=== PATIENT | female | born 1950 | race Two or more races ===

== ENCOUNTER 2016-11-18 13:04 | Emergency (ER) | payer MEDICAID, OTHER ==
[~2016-11-18] VITALS: Ht 162.6 cm; Wt 61.2 kg
[2016-11-18] MEDS ORDERED: NORCO 5-325 TA1 EAC1 ORAL (14:03)
[2016-11-18] MEDS ORDERED: IBUPROFEN600 MG ORAL (14:03)
[2016-11-18 14:11] VITALS: BP 133/80
[2016-11-18 14:12] VITALS: BP 133/80
--- NOTE | 2016-11-18 15:42 | Emergency Room Report ---
History of Present Illness General Chief Complaint: Lower Back Pain or Injury Source: Patient Present Illness [facility] The patient is a 66-year-old female presenting with right lower back pain which began 2 days prior for no known reason. She denies any injury. She denies previous injury to the area. Pain is described as a 7/10 dull ache and radiates from the right lower back to the buttock. She denies any numbness or tingling. Worse with walking. She denies any other symptoms including nausea, vomiting, fever, chills, abdominal pain, dysuria, vaginal discharge Allergies: Coded Allergies: No Known Allergies (Unverified , 11/18/16) Patient History Past Medical History: see triage record Pertinent Family History: none Reviewed Nursing Documentation: PMH: Agreed, PSxH: Agreed Nursing Documentation-PMH Past Medical History: No History, Except For Hx Cardiac Problems: No Hx Hypertension: No Hx Pacemaker: No Hx Asthma: No Hx COPD: No Hx Diabetes: No Hx Seizures: No Review of Systems All Other Systems: negative except mentioned in HPI Physical Exam Vital Signs Date Time Temp Pulse Resp B/P Pulse Ox O2 Delivery O2 Flow Rate FiO2 11/18/16 13:26 97.9 73 14 133/80 99 Room Air Sp02 EP Interpretation: reviewed, normal General Appearance: no apparent distress, alert, GCS 15, non-toxic Head: normocephalic, atraumatic Eyes: bilateral eye PERRL, bilateral eye normal inspection ENT: hearing grossly normal, normal pharynx, no angioedema, normal voice Gastrointestinal: normal bowel sounds, non tender, soft, non-distended, no guarding, no rebound Genitourinary: normal inspection, no CVA tenderness Musculoskeletal: back normal, gait/station normal, normal range of motion, non- tender, tender - TTP over the R lumbar paraspinal muscles Neurologic: alert, oriented x3, responsive, motor strength/tone normal, sensory intact, speech normal Psychiatric: judgement/insight normal, memory normal, mood/affect normal, no suicidal/homicidal ideation Skin: normal color, no rash, warm/dry, well hydrated Lymphatic: no adenopathy Medical Decision Making PA Attestation Dr. Herndon is my supervising physician. Patient management was discussed with my supervising physician Diagnostic Impression: Primary Impression: Lumbosacral pain ER Course The patient is a 66-year-old female presenting with right lower back pain Ddx considered include but not limited to lumbar strain, degenerative disease, epidural abscess, cauda equina, chronic pain, narcotic dependency. PE: vitals WNL. NAD TTP over the R lumbar paraspinal muscles and buttock. Normal gait. No CVA tenderness or abd tenderness Otherwise unremarkable. No midline tenderness The patient will be treated with pain medication and needs to FU with PMD. ER precautions given Last Vital Signs Date Time Temp Pulse Resp B/P Pulse Ox O2 Delivery O2 Flow Rate FiO2 11/18/16 14:12 97.9 14 133/80 99 Room Air 11/18/16 13:26 73 Status: improved Disposition: HOME, SELF-CARE Condition: Improved Scripts Hydrocodone Bit/Acetaminophen 5-325* (NORCO 5-325 TABLET*) 1 Each Tablet 1 TAB ORAL Q6HR Y for For Pain, #10 TAB Prov: JUAN J [email or web address].Jordan 11/18/16 Ibuprofen* (MOTRIN*) 600 Mg Tablet 600 MG ORAL Q8H Y for For Pain, #30 TAB 0 Refills Prov: JUAN J STODDARD.A. 11/18/16 Referrals: [facility] (PCP) Patient Instructions: Lumbosacral Strain, Back Pain, Adult, Heat Therapy Additional Instructions: I discussed my findings with the patient. All questions and concerns have been answered. Treatment and medication compliance have been addressed. I advised the patient that they need to follow up with PMD in 3-5 days. Return to ED if pain remains or worsens, numbness or tingling occurs, new rash is noticed, fever is noticed, or if needed for any reason. Patient verbalized understanding of discharge instructions. The patient was informed that she may need MRI if pain persists or worsens. JUAN J STODDARD Nov 18, 2016 15:42
== END 2016-11-18 14:20 | disposition home or self-care (01) ==
LOC: EMR 13:58
DX: M54.5 Low back pain (principal)
CPT/HCPCS: 99284